=== PATIENT | male | born 1945 | race Caucasian/White ===

== ENCOUNTER 2017-03-06 14:48 | Emergency (ER) | payer MEDICARE ==
[~2017-03-06] VITALS: Ht 160 cm; Wt 90.7 kg
[2017-03-06 15:00] VITALS: BP_SYST 157
--- NOTE | 2017-03-06 15:00 | NUR ---
Patient to room 6 to await evaluation.
--- NOTE | 2017-03-06 15:05 | NUR ---
Dr Hanna at bedside to evaluate patient.
--- NOTE | 2017-03-06 15:15 | NUR ---
Patient to ED via EMT's with c/o ALOC due to ETOH. S/P non-syncopal fall landing on left elbow, with skin tear noted. No active bleeding-patient has been seen and evaluated by Dr Hanna, orders received and implemented.
[2017-03-06 15:32] LABS: BASOPHILS % (AUTO) 0.7 % (0.0-2.0); EOSINOPHILS # (AUTO) 0.2 K/uL (0.0-0.4); EOSINOPHILS % (AUTO) 2.3 % (0.0-4.0); HEMATOCRIT 41.3 % (36-54); HEMOGLOBIN 13.7 g/dL (14.0-18.0); LYMPHOCYTES # (AUTO) 1.7 K/uL (1.0-5.5); LYMPHOCYTES % (AUTO) 23.6 % (20.5-51.5); MEAN CORPUSCULAR HEMOGLOBIN 31 pg (27-31); MEAN CORPUSCULAR HGB CONC 33 % (32-36); MEAN CORPUSCULAR VOLUME 94 fL (79.0-98.0); MONOCYTES # (AUTO) 0.4 K/uL (0.0-1.0); NEUTROPHILS # (AUTO) 4.8 K/uL (1.8-7.7); NEUTROPHILS % (AUTO) 68.4 % (40.0-70.0); PLATELET COUNT (AUTO) 234 K/uL (130-430); RED BLOOD CELL COUNT(AUTO) 4.38 MIL/uL (4.2-6.2); RED CELL DISTRIBUTION WIDTH 12.1 % (9.0-15.0); WHITE BLOOD COUNT (AUTO) 7.1 K/uL (4.8-10.8)
[2017-03-06 15:38] LABS: PROTHROMBIN TIME 10.9 SECS (9.5-12.5)
[2017-03-06 15:44] LABS: ANION GAP 11 (5-15); CALCIUM 7.9 mg/dL (8.4-11.0); CHLORIDE 103 mmol/L (98-107); CREATININE 0.59 mg/dL (0.55-1.30); GLUCOSE 200 mg/dL (70-99); POTASSIUM 3.9 mmol/L (3.5-5.1); SODIUM SERUM 139 mmol/L (136-145); UREA NITROGEN, BLOOD 6 mg/dL (8-21)
[2017-03-06 15:45] LABS: GFR AFRICAN AMERICAN 175 mL/min (>90)
[2017-03-06 15:46] LABS: SALICYLATE 1 mg/dL (3-30)
[2017-03-06 15:52] LABS: ALANINE AMINOTRANSFERASE 22 U/L (12-78); ALBUMIN 3.7 g/dL (3.4-4.8); ASPARTATE AMINOTRANSFERASE 20 U/L (10-37); CREATINE KINASE, TOTAL 130 U/L (39-308); TOTAL BILIRUBIN 0.2 mg/dL (0.0-1.0); TOTAL PROTEIN, SERUM 7.4 g/dL (6.4-8.3)
[2017-03-06 16:04] LABS: ACETAMINOPHEN < 1 ug/mL (1-30)
--- NOTE | 2017-03-06 16:11 | NUR ---
Patient to CT scan at this time.
--- NOTE | 2017-03-06 16:30 | NUR ---
Patient back from CT scan in stable condition. Awaiting dispo.
[2017-03-06 18:15] VITALS: BP_SYST 123
--- NOTE | 2017-03-06 18:16 | NUR ---
Patient given written and verbal discharge instructions and verbalizes understanding. ER MD discussed with patient the results and treatment provided. Patient in stable condition. ID arm band removed. No Rx given. Patient educated on pain management and to follow up with PMD/ Rehab Facility. Pain Scale 0/10. Opportunity for questions provided and answered.
== END 2017-03-06 18:15 | disposition home or self-care (01) ==
LOC: SED 14:48
DX: S50.312A Abrasion of left elbow, initial encounter (principal); F10.129 Alcohol abuse with intoxication, unspecified; E11.9 Type 2 diabetes mellitus without complications; I10 Essential (primary) hypertension; W18.00XA Striking against unspecified object with subsequent fall, initial encounter; Y93.89 Activity, other specified; Y92.89 Other specified places as the place of occurrence of the external cause; Y99.8 Other external cause status
CPT/HCPCS: 36415; 70450; 80053; 82550; 84484; 85025; 85610; 85730; 93005; 99285; G0480; G0481